=== PATIENT | female | born 1945 | race Caucasian/White ===

== ENCOUNTER → 2017-02-26 | Outpatient (CLI) | payer MEDICARE, MEDICAID ==
--- NOTE | 2017-02-26 16:13 | WOMENS IMAGING REPORT ---
EXAM DESCRIPTION: BILAT SCREENING MAMMO W/CAD COMPLETED DATE/TIME: 02/26/2017 8:56 am REASON FOR STUDY: SCREENING MAMMO Z12.31 ENCNTR SCREEN MAMMOGRAM FOR MALIGNANT NEOPLASM OF SATYA COMPARISON: No previous available. No previous mammograms here since 2006 TECHNIQUE: Standard craniocaudal and mediolateral oblique views of each breast recorded using Bioptigena l acquisition. LIMITATIONS: None. FINDINGS: RIGHT BREAST MASSES: No suspicious masses. CALCIFICATIONS: No new or suspicious calcifications. ARCHITECTURAL DISTORTION: None. DEVELOPING DENSITY: None. ASYMMETRY: None noted. OTHER: No other significant findings. LEFT BREAST MASSES: Nodule versus superimposed shadows 12 o'clock position left breast 5 cm from the nipple. Thi s requires further evaluation with cone compression in the CC and MLO orientations, left breast tomos ynthesis in the CC and 90 mediolateral orientations, and left breast ultrasound. CALCIFICATIONS: No new or suspicious calcifications. ARCHITECTURAL DISTORTION: None. DEVELOPING DENSITY: None. ASYMMETRY: None noted. OTHER: No other significant findings. Read with the assistance of CAD. .[facility] - R2 Cenova Version 1.3 .[facility] Imaging - R2 Cenova Version 1.3 .[facility] Imaging - R2 Cenova Version 2.4 .[facility] [place] R2 Cenova Version 2.4 .[facility] - R2 Warning Analyst Version 9.2 IMPRESSION: No mammographic evidence for malignancy right breast. Nodules versus superimposed shadows left breast 12 o'clock position for which additional cone shelly salo images, tomosynthesis, and breast ultrasound recommended BREAST DENSITY: b. There are scattered areas of fibroglandular density. BIRAD: 0 Incomplete: Needs Additional Imaging Evaluation and/or prior Mammograms for Comparison. RECOMMENDATION: RECOMMENDED FOLLOW-UP: Additional left breast diagnostic mammograms/tomosynthesis an d ultrasound The patient will be contacted for additional imaging. COMMENT: The patient has been notified of the results by letter per SA requirements. Additional no tification policies are in place for contacting patient with suspicious or incomplete findings. Quality ID #[id number]: The [employer] recommends an annual screening mammogram for women aged 40 years or over. This facility utilizes a reminder system to ensure that all patients receive reminder letters, and/or direct phone calls for appointments. This includes reminders for routine scr eening mammograms, diagnostic mammograms, or other Breast Imaging Interventions when appropriate. Th is patient will be placed in the appropriate reminder system. The [employer] (ACR) has developed recommendations for screening MRI of the breast s in certain patient populations, to be used in conjunction with mammography. Breast MRI surveillanc e may be appropriate for women with more than 20% lifetime risk of developing breast cancer as deter mined by genetic testing, significant family history of the disease, or history of mantle radiation f or Hodgkins Disease. ACR Practice Guidelines 2008. TECHNICAL DOCUMENTATION: FINDING NUMBER: (1) ASSESSMENT: (1) JOB ID: [id number] [employer]- All Rights Reserved
== END ==
LOC: WI 08:34
PROVIDERS: ATTEND Family Medicine
DX: Z12.31 Encounter for screening mammogram for malignant neoplasm of breast (principal)
CPT/HCPCS: 77067; G0202

== ENCOUNTER → 2017-03-18 | Outpatient (CLI) | payer MEDICARE, MEDICAID ==
--- NOTE | 2017-03-18 18:01 | WOMENS IMAGING REPORT ---
EXAM DESCRIPTION: LEFT DIAGNOSTIC MAMMO W/CAD; U/S BREAST UNILAT LIMITED COMPLETED DATE/TIME: 03/18/2017 9:38 am; 03/18/2017 10:49 am REASON FOR STUDY: LUMP N63; LEFT BREAST MASS; N63 N63 UNSPECIFIED LUMP IN BREAST; N63 UNSPECIFIED LUMP IN BREAST * DO NOT USE * COMPARISON: Mammograms 02/26/2017 TECHNIQUE: Spot compression craniocaudal and mediolateral oblique images of the breast recorded with digital acquisition. Left breast 90 mediolateral view. Left breast ultrasound also performed. LIMITATIONS: None. FINDINGS: BREAST: Left MASSES: Low-density mammographic nodule, 8 x 3 mm in size at the 12 o'clock position CALCIFICATIONS: No new or suspicious calcifications. ARCHITECTURAL DISTORTION: None. DEVELOPING DENSITY: None. ASYMMETRY: None noted. OTHER: No other significant findings. Read with the assistance of CAD. .[facility] - R2 Cenova Version 1.3 .[facility] Imaging - R2 Cenova Version 1.3 .[facility] Imaging - R2 Cenova Version 2.4 .[facility] [place] - R2 Cenova Version 2.4 .[facility] - R2 Trouble Shooter Version 9.2 Left Breast ultrasound: Ultrasound of the left breast was performed at the 12 o'clock position by both myself as well as the technologist. At the 12 o'clock position left breast, an 8 by 3 mm nodule is present, hypoechoic and well-circumscribed. No internal color flow. This finding was discussed with the patient. She prefe rs six-month follow-up to any kind of breast intervention/biopsy. Because this may represent a small fibroadenoma, and mammograms prior to February of this year have been destroyed, we will perform si x-month follow-up left breast mammograms and ultrasound in September 2017 IMPRESSION: Probably benign mammographic and sonographic nodule left breast 12 o'clock position BREAST DENSITY: b. There are scattered areas of fibroglandular density. BIRAD: 3 Probably benign finding. Initial short-interval follow-up suggested. RECOMMENDATION: RECOMMENDED FOLLOW UP: Six-month follow up left breast diagnostic mammograms and ult rasound SPECIFIC INTERVENTION/IMAGING/CONSULTATION RECOMMENDED:No additional intervention/ imaging/consultati on needed at this time. COMMUNICATION:Results were discussed with the patient COMMENT: The patient has been notified of the results by letter per SA requirements. Additional no tification policies are in place for contacting patient with suspicious or incomplete findings. Quality ID #[id number]: The [employer] recommends an annual screening mammogram for women aged 40 years or over. This facility utilizes a reminder system to ensure that all patients receive reminder letters, and/or direct phone calls for appointments. This includes reminders for routine scr eening mammograms, diagnostic mammograms, or other Breast Imaging Interventions when appropriate. Th is patient will be placed in the appropriate reminder system. The [employer] (ACR) has developed recommendations for screening MRI of the breast s in certain patient populations, to be used in conjunction with mammography. Breast MRI surveillanc e may be appropriate for women with more than 20% lifetime risk of developing breast cancer as deter mined by genetic testing, significant family history of the disease, or history of mantle radiation f or Hodgkins Disease. ACR Practice Guidelines 2008. TECHNICAL DOCUMENTATION: FINDING NUMBER: (1) ASSESSMENT: (1) JOB ID: [id number] [employer]- All Rights Reserved
--- NOTE | 2017-03-19 10:26 | WOMENS IMAGING REPORT ---
EXAM DESCRIPTION: LEFT DIAGNOSTIC MAMMO W/CAD; U/S BREAST UNILAT LIMITED COMPLETED DATE/TIME: 03/18/2017 9:38 am; 03/18/2017 10:49 am REASON FOR STUDY: LUMP N63; LEFT BREAST MASS; N63 N63 UNSPECIFIED LUMP IN BREAST; N63 UNSPECIFIED LUMP IN BREAST * DO NOT USE * COMPARISON: Mammograms 02/26/2017 TECHNIQUE: Spot compression craniocaudal and mediolateral oblique images of the breast recorded with digital acquisition. Left breast 90 mediolateral view. Left breast ultrasound also performed. LIMITATIONS: None. FINDINGS: BREAST: Left MASSES: Low-density mammographic nodule, 8 x 3 mm in size at the 12 o'clock position CALCIFICATIONS: No new or suspicious calcifications. ARCHITECTURAL DISTORTION: None. DEVELOPING DENSITY: None. ASYMMETRY: None noted. OTHER: No other significant findings. Read with the assistance of CAD. .[facility] - R2 Cenova Version 1.3 .[facility] Imaging - R2 Cenova Version 1.3 .[facility] Imaging - R2 Cenova Version 2.4 .[facility] [place] R2 Cenova Version 2.4 .[facility] - R2 Computer System Technician Version 9.2 Left Breast ultrasound: Ultrasound of the left breast was performed at the 12 o'clock position by both myself as well as the technologist. At the 12 o'clock position left breast, an 8 by 3 mm nodule is present, hypoechoic and well-circumscribed. No internal color flow. This finding was discussed with the patient. She prefe rs six-month follow-up to any kind of breast intervention/biopsy. Because this may represent a small fibroadenoma, and mammograms prior to February of this year have been destroyed, we will perform si x-month follow-up left breast mammograms and ultrasound in September 2017 IMPRESSION: Probably benign mammographic and sonographic nodule left breast 12 o'clock position BREAST DENSITY: b. There are scattered areas of fibroglandular density. BIRAD: 3 Probably benign finding. Initial short-interval follow-up suggested. RECOMMENDATION: RECOMMENDED FOLLOW UP: Six-month follow up left breast diagnostic mammograms and ult rasound SPECIFIC INTERVENTION/IMAGING/CONSULTATION RECOMMENDED:No additional intervention/ imaging/consultati on needed at this time. COMMUNICATION:Results were discussed with the patient COMMENT: The patient has been notified of the results by letter per SA requirements. Additional no tification policies are in place for contacting patient with suspicious or incomplete findings. Quality ID #[id number]: The [employer] recommends an annual screening mammogram for women aged 40 years or over. This facility utilizes a reminder system to ensure that all patients receive reminder letters, and/or direct phone calls for appointments. This includes reminders for routine scr eening mammograms, diagnostic mammograms, or other Breast Imaging Interventions when appropriate. Th is patient will be placed in the appropriate reminder system. The [employer] (ACR) has developed recommendations for screening MRI of the breast s in certain patient populations, to be used in conjunction with mammography. Breast MRI surveillanc e may be appropriate for women with more than 20% lifetime risk of developing breast cancer as deter mined by genetic testing, significant family history of the disease, or history of mantle radiation f or Hodgkins Disease. ACR Practice Guidelines 2008. TECHNICAL DOCUMENTATION: FINDING NUMBER: (1) ASSESSMENT: (1) JOB ID: [id number] [employer]- All Rights Reserved
== END ==
LOC: WI 09:44
PROVIDERS: ATTEND Family Medicine
DX: N63.20 Unspecified lump in the left breast, unspecified quadrant (principal)
CPT/HCPCS: 76642; G0206

== ENCOUNTER → 2017-04-23 | Outpatient (CLI) | payer MEDICARE, MEDICAID ==
--- NOTE | 2017-04-23 12:42 | RADIOLOGY REPORT (SQ) ---
EXAM DESCRIPTION: PELVIS AP COMPLETED DATE/TIME: 04/23/2017 12:14 pm REASON FOR STUDY: PAIN IN LEFT HIP M25.552 PAIN IN LEFT HIP COMPARISON: None. NUMBER OF VIEWS: One view TECHNIQUE: AP Pelvis LIMITATIONS: None. FINDINGS: MINERALIZATION: Normal. HIPS: No acute fracture or dislocation. No worrisome bone lesions. PELVIS AND SACRUM: There is a defect in the right ilium, suggesting donor site for bone graft. PUBIS AND ISCHIUM: No acute fracture. LOWER LUMBAR SPINE: No significant findings as visualized. SOFT TISSUES: No findings. OTHER: No other significant finding. IMPRESSION: NEGATIVE STUDY OF THE PELVIS. TECHNICAL DOCUMENTATION: JOB ID: [id number] [employer]- All Rights Reserved
== END ==
LOC: OD 11:58
PROVIDERS: ATTEND Family Medicine
DX: M25.552 Pain in left hip (principal)
CPT/HCPCS: 72170

== ENCOUNTER 2017-05-30 22:16 | Observation (INO) | payer MEDICARE, MEDICAID ==
[2017-05-30] MEDS ORDERED: LABETALOL HCL INJ 20 MG/4 ML DISP.SYRIN IV ONE ×2 (22:40→22:41)
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
[2017-05-30 23:24] LABS: APPEARANCE,URINE CLEAR; BILIRUBIN,URINE NEGATIVE (NEGATIVE); COLOR,URINE STRAW; GLUCOSE, URINE NEGATIVE (NEGATIVE); KETONES,URINE NEGATIVE (NEGATIVE); LEUKOCYTE ESTERASE,URINE SMALL (NEGATIVE); NITRITE,URINE NEGATIVE (NEGATIVE); PROTEIN,URINE NEGATIVE (NEGATIVE); URINE SPECIFIC GRAVITY 1.002; UROBILINOGEN,URINE NEGATIVE mg/dL (<2.0)
[2017-05-30 23:25] LABS: ABSOLUTE EOSINOPHILS # (AUTO) 0.1 10^3/uL (0.0-0.6); ABSOLUTE MONOCYTES (AUTO) 0.6 10^3/uL (0.1-1.4); ABSOLUTE NEUT (AUTO) 3.5 10^3/uL (1.7-8.2); BASOPHILS % (AUTO) 0.5 % (0-2); EOSINOPHILS % (AUTO) 1.5 % (0-6); HEMATOCRIT 46.8 % (36.0-47.0); HEMOGLOBIN 16.1 g/dL (12.0-15.5); LYMPHOCYTES % (AUTO) 41.4 % (13-45); MEAN CORPUSCULAR HEMOGLOBIN 32.8 pg (27.0-33.4); MEAN CORPUSCULAR HGB CONC 34.5 g/dL (32.0-36.0); MEAN CORPUSCULAR VOLUME 95 fl (80-97); MONOCYTES % (AUTO) 7.7 % (3-13); PLATELET COUNT 158 10^3/uL (150-450); RED BLOOD COUNT 4.93 10^6/uL (3.72-5.28); RED CELL DISTRIBUTION WIDTH 13.6 % (11.5-14.0); SEGMENTED NEUTROPHILS % (AUTO) 48.9 % (42-78); TOTAL CELLS COUNTED % (AUTO) 100 %; WHITE BLOOD COUNT 7.2 10^3/uL (4.0-10.5)
[2017-05-30 23:32] LABS: ALANINE AMINOTRANSFERASE 18 U/L (9-52); ALBUMIN 4.1 g/dL (3.5-5.0); ALKALINE PHOSPHATASE 57 U/L (38-126); ANION GAP 10 (5-19); ASPARTATE AMINO TRANSFERASE 25 U/L (14-36); BILIRUBIN,DIRECT 0.3 mg/dL (0.0-0.4); BILIRUBIN,TOTAL 0.7 mg/dL (0.2-1.3); BLOOD UREA NITROGEN 12 mg/dL (7-20); CALCIUM 9.4 mg/dL (8.4-10.2); CARBON DIOXIDE 30 mmol/L (22-30); CHLORIDE 100 mmol/L (98-107); CREATINE KINASE 31 U/L (30-135); GLUCOSE 97 mg/dL (75-110); MAGNESIUM 2.2 mg/dL (1.6-2.3); POTASSIUM 3.4 mmol/L (3.6-5.0); SODIUM 139.5 mmol/L (137-145); TOTAL PROTEIN 7.1 g/dL (6.3-8.2)
[2017-05-30 23:44] LABS: CREATINE KINASE MB 0.53 ng/mL (<4.55); TROPONIN I 0.017 ng/mL
[2017-05-31 00:01] LABS: URINE AMPHETAMINES SCREEN NEGATIVE; URINE BARBITURATES SCREEN NEGATIVE; URINE BENZODIAZEPINES SCREEN NEGATIVE; URINE COCAINE SCREEN NEGATIVE; URINE MARIJUANA (THC) SCREEN NEGATIVE; URINE METHADONE SCREEN NEGATIVE; URINE PHENCYCLIDINE SCREEN NEGATIVE
--- NOTE | 2017-05-31 00:07 | RADIOLOGY REPORT (SQ) ---
EXAM DESCRIPTION: CT HEAD WITHOUT CLINICAL HISTORY: 71 years Female, BP> 260syst, acutely confused COMPARISON: None. TECHNIQUE: No contrast. This exam was performed according to our departmental dose-optimization program, which includes automated exposure control, adjustment of the mA and/or kV according to patient size and/or use of iterative reconstruction technique. Limitation: Mild motion artifact. FINDINGS: Mild white matter microangiopathy. Atherosclerosis. No hemorrhage or infarct. No mass, mass effect, or midline shift. Bone demineralization. Extra-axial structures appear otherwise grossly intact. IMPRESSION: No acute findings.
--- NOTE | 2017-05-31 00:13 | RADIOLOGY REPORT (SQ) ---
EXAM DESCRIPTION: CHEST SINGLE VIEW CLINICAL HISTORY: 71 years, Female, confused hypertency emergency COMPARISON: None. LIMITATIONS: None. FINDINGS: Moderate lung volume, clear parenchyma, normal cardiac silhouette, atherosclerosis, mild osteoarthritis. IMPRESSION: Normal chest radiograph. 2011 [employer]- All Rights Reserved
[2017-05-31] MEDS ORDERED: MAG HYDROX/AL HYDROX/SIMETH SUSP 30 ML UDCUP PO PRN (00:46)
[2017-05-31] MEDS ORDERED: IPRATROPIUM/ALBUTEROL 0.5-2.5 MG/3 ML AMPUL NEB PRN (00:46)
[2017-05-31] MEDS ORDERED: ACETAMINOPHEN 325 MG TABLET PO PRN (00:46)
[2017-05-31] MEDS ORDERED: ENALAPRILAT DIHYDRATE INJ/PF 1.25 MG/1 ML SDV IV ONE (00:46)
[2017-05-31] MEDS ORDERED: POTASSIUM CHLORIDE 20 MEQ/15 ML UDCUP PO ONE ×2 (04:42→18:00)
[2017-05-31 04:47] LABS: ABSOLUTE EOSINOPHILS # (AUTO) 0.1 10^3/uL (0.0-0.6); ABSOLUTE LYMPHOCYTES (AUTO) 2.6 10^3/uL (0.5-4.7); ABSOLUTE MONOCYTES (AUTO) 0.5 10^3/uL (0.1-1.4); ABSOLUTE NEUT (AUTO) 3.3 10^3/uL (1.7-8.2); BASOPHILS % (AUTO) 0.7 % (0-2); EOSINOPHILS % (AUTO) 1.6 % (0-6); HEMATOCRIT 44.7 % (36.0-47.0); HEMOGLOBIN 15.3 g/dL (12.0-15.5); LYMPHOCYTES % (AUTO) 39.9 % (13-45); MEAN CORPUSCULAR HEMOGLOBIN 32.6 pg (27.0-33.4); MEAN CORPUSCULAR HGB CONC 34.2 g/dL (32.0-36.0); MEAN CORPUSCULAR VOLUME 95 fl (80-97); MONOCYTES % (AUTO) 7.6 % (3-13); PLATELET COUNT 151 10^3/uL (150-450); RED BLOOD COUNT 4.69 10^6/uL (3.72-5.28); RED CELL DISTRIBUTION WIDTH 13.5 % (11.5-14.0); SEGMENTED NEUTROPHILS % (AUTO) 50.2 % (42-78); TOTAL CELLS COUNTED % (AUTO) 100 %; WHITE BLOOD COUNT 6.5 10^3/uL (4.0-10.5)
[2017-05-31 05:00] LABS: ANION GAP 12 (5-19); BLOOD UREA NITROGEN 12 mg/dL (7-20); CALCIUM 9.2 mg/dL (8.4-10.2); CARBON DIOXIDE 25 mmol/L (22-30); CHLORIDE 104 mmol/L (98-107); GLUCOSE 95 mg/dL (75-110); POTASSIUM 3.4 mmol/L (3.6-5.0)
[2017-05-31] MEDS: HEPARIN SOD (PORCINE) 5,000 UNIT/ML 1 ML SYRINGE SUBCUT SCH ×3 (05:53→22:11)
[2017-05-31] MEDS ORDERED: KETOROLAC TROMETHAMINE INJ/PF 30 MG/1 ML SDV IV PRN (05:55)
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
[2017-05-31] MEDS: OXYCODONE-ACETAMINOPHEN 5-325 MG TABLET PO PRN ×2 (07:01→22:18)
--- NOTE | 2017-05-31 07:56 | EKG REPORT ---
SEVERITY:- OTHERWISE NORMAL ECG - SINUS RHYTHM LEFT AXIS DEVIATION : Confirmed by: Delbert Machado MD 31-May-2017 07:55:47
[2017-05-31] MEDS ORDERED: (PENDING PHARMACY ID) (Valsartan/Hydrochlorothiazide [Valsartan-Hctz 320-12.5 Mg Tab] 1 EA PO SCH (10:00)
[2017-05-31] MEDS: METOPROLOL TARTRATE 25 MG TABLET PO SCH ×2 (11:12→17:46)
[2017-05-31] MEDS: HYDROCHLOROTHIAZIDE 12.5 MG CAPSULE PO SCH (11:12)
[2017-05-31] MEDS: VALSARTAN 160 MG TABLET PO SCH (11:12)
[2017-05-31] MEDS ORDERED: NORMAL SALINE 500 ML IV PRN (11:47)
[2017-05-31] MEDS: DOCUSATE SODIUM 100 MG CAPSULE PO SCH ×2 (12:04→18:28)
--- NOTE | 2017-05-31 17:10 | PDOC PROGRESS REPORT ---
Subjective Progress Note for:: 05/31/17 Subjective:: Pt is seen on morning rounds for follow up of hypertensive urgency. She is found resting in bed comfortably on room air. She wakes to verbal and briefly answers questions, but quickly falls back to sleep. The patient's adult daughter is present. Reports that her mother has dementia and that she has noted her becoming progressively more confused over the last several months; often times the mother does not remember speaking to her earlier in the day. She is concerned that the patient may be forgetting her medications and accidentally taking more pain medications and is recommended. She states that her and her older brother have been attempting to get the patient to move into a assisted facility for a few years now, however, she currently is living with the youngest son and so has remained resistant to moving out of her home. The daughter does request social work therapist to assist with identifying needs and services. She has no other questions or concerns today. Reason For Visit: HTN URGENCY,ENCEPHALOPATHY,DELERIUM,CHRONIC PAIN Physical Exam Vital Signs: Temp Pulse Resp BP Pulse Ox 97.9 F 56 L 17 127/59 H 97 05/31/17 16:00 05/31/17 16:00 05/31/17 16:00 05/31/17 16:00 05/31/17 16:00 Intake & Output 05/30/17 05/31/17 06/01/17 06:59 06:59 06:59 Weight 58.5 kg General appearance: PRESENT: no acute distress, well-developed, well-nourished Head exam: PRESENT: atraumatic, normocephalic Eye exam: PRESENT: conjunctiva pink, EOMI, PERRLA. ABSENT: scleral icterus Ear exam: PRESENT: normal external ear exam Mouth exam: PRESENT: moist, tongue midline Neck exam: ABSENT: carotid bruit, JVD, lymphadenopathy, thyromegaly Respiratory exam: PRESENT: clear to auscultation damon. ABSENT: rales, rhonchi, wheezes Cardiovascular exam: PRESENT: RRR. ABSENT: diastolic murmur, rubs, systolic murmur Pulses: PRESENT: normal dorsalis pedis pul Vascular exam: PRESENT: normal capillary refill GI/Abdominal exam: PRESENT: normal bowel sounds, soft. ABSENT: distended, guarding, mass, organolmegaly, rebound, tenderness Rectal exam: PRESENT: deferred Extremities exam: PRESENT: full ROM. ABSENT: calf tenderness, clubbing, pedal edema Neurological exam: PRESENT: oriented to person, oriented to place, CN II-XII grossly intact, other - Pleasantly confused.. ABSENT: oriented to time, oriented to situation, motor sensory deficit Psychiatric exam: PRESENT: appropriate affect, normal mood. ABSENT: homicidal ideation, suicidal ideation Skin exam: PRESENT: dry, intact, warm. ABSENT: cyanosis, rash Results Laboratory Results: 05/31/17 04:27 05/31/17 04:27 05/31/17 05/31/17 04:27 04:27 WBC 6.5 RBC 4.69 Hgb 15.3 Hct 44.7 MCV 95 MCH 32.6 MCHC 34.2 RDW 13.5 Plt Count 151 Seg Neutrophils % 50.2 Lymphocytes % 39.9 Monocytes % 7.6 Eosinophils % 1.6 Basophils % 0.7 Absolute Neutrophils 3.3 Absolute Lymphocytes 2.6 Absolute Monocytes 0.5 Absolute Eosinophils 0.1 Absolute Basophils 0.0 Sodium 141.0 Potassium 3.4 L Chloride 104 Carbon Dioxide 25 Anion Gap 12 BUN 12 Creatinine 1.15 Est GFR ( Amer) 56 L Est GFR (Non-Af Amer) 46 L Glucose 95 Calcium 9.2 Impressions: Head CT 05/30/17 22:41 IMPRESSION: No acute findings. Chest X-Ray 05/30/17 22:42 IMPRESSION: Normal chest radiograph. 2010 [employer]- All Rights Reserved Assessment & Plan - Diagnosis (1) Hypertensive urgency Is this a current diagnosis for this admission?: Yes Plan: Likely multifactorial secondary to noncompliance with medication and severe delirium with hallucinations. She was provided IV Vasotec initially and had reintroduction of her home medication regiment. The pt did become mildly hypotensive today and was provided a 500 mL of normal saline bolus with appropriate recovery of blood pressure. Will continue to monitor closely. (2) Dementia Qualifiers: Dementia type: unspecified type Is this a current diagnosis for this admission?: Yes Plan: Patient with progressively worsening dementia per family who presents with acute worsening; the patient is oriented to [place], Steve Novoa, and is expressing visual hallucinations (believes there is a broken vase in the room). Likely worsened by hypertensive urgency. Will manage blood pressure as above. Will ask discharge planning to meet with the patient and family to evaluate for safe discharge plan. (3) Chronic pain Qualifiers: Chronic pain type: other chronic pain Qualified Code(s): G89.29 - Other chronic pain Is this a current diagnosis for this admission?: Yes Plan: Complicated by opiate dependence. Her Percocet bottles show a large deficit; however the patient's UDS is negative. Some concern w/ regard to drug diversion by family member that lives in the home. Will ask discharge planning to evaluate the patient's current living situation. May need to consider a DSS referral. (4) Delirium Is this a current diagnosis for this admission?: Yes Plan: Likely multifactorial encephalopathy secondary to hypertensive urgency and dementia. Will provide for safety and continue to monitor. (5) Hypokalemia Is this a current diagnosis for this admission?: Yes Plan: Replete. Will continue to monitor and replace as necessary. (6) Left ankle sprain Is this a current diagnosis for this admission?: Yes Plan: Remote; ankle sprain from approximately 1 month ago with continued pain. No deformities noted on exam. Will ask PT/OT to evaluate the patient. - Time Time Spent with patient: 15-24 minutes Medications reviewed and adjusted accordingly: Yes
[2017-05-31] MEDS ORDERED: VALSARTAN 160 MG TABLET PO ONE (22:45)
[2017-06-01 05:01] LABS: ABSOLUTE EOSINOPHILS # (AUTO) 0.1 10^3/uL (0.0-0.6); ABSOLUTE LYMPHOCYTES (AUTO) 3.3 10^3/uL (0.5-4.7); ABSOLUTE MONOCYTES (AUTO) 0.5 10^3/uL (0.1-1.4); ABSOLUTE NEUT (AUTO) 2.5 10^3/uL (1.7-8.2); BASOPHILS % (AUTO) 0.4 % (0-2); EOSINOPHILS % (AUTO) 2.2 % (0-6); HEMATOCRIT 42.8 % (36.0-47.0); HEMOGLOBIN 14.5 g/dL (12.0-15.5); LYMPHOCYTES % (AUTO) 51.1 % (13-45); MEAN CORPUSCULAR HEMOGLOBIN 32.5 pg (27.0-33.4); MEAN CORPUSCULAR HGB CONC 33.8 g/dL (32.0-36.0); MEAN CORPUSCULAR VOLUME 96 fl (80-97); MONOCYTES % (AUTO) 7.1 % (3-13); PLATELET COUNT 143 10^3/uL (150-450); RED BLOOD COUNT 4.45 10^6/uL (3.72-5.28); RED CELL DISTRIBUTION WIDTH 13.8 % (11.5-14.0); SEGMENTED NEUTROPHILS % (AUTO) 39.2 % (42-78); TOTAL CELLS COUNTED % (AUTO) 100 %; WHITE BLOOD COUNT 6.5 10^3/uL (4.0-10.5)
[2017-06-01 05:35] LABS: ANION GAP 9 (5-19); BLOOD UREA NITROGEN 23 mg/dL (7-20); CALCIUM 9.1 mg/dL (8.4-10.2); CARBON DIOXIDE 24 mmol/L (22-30); CHLORIDE 106 mmol/L (98-107); GLUCOSE 77 mg/dL (75-110); SODIUM 138.7 mmol/L (137-145)
[2017-06-01 05:48] LABS: POTASSIUM 4.7 mmol/L (3.6-5.0)
[2017-06-01] MEDS: HEPARIN SOD (PORCINE) 5,000 UNIT/ML 1 ML SYRINGE SUBCUT SCH ×2 (06:56→14:29)
[2017-06-01] MEDS: METOPROLOL TARTRATE 25 MG TABLET PO SCH (10:05)
[2017-06-01] MEDS: DOCUSATE SODIUM 100 MG CAPSULE PO SCH (10:08)
[2017-06-01] MEDS: HYDROCHLOROTHIAZIDE 12.5 MG CAPSULE PO SCH (10:08)
[2017-06-01] MEDS: VALSARTAN 160 MG TABLET PO SCH (10:08)
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
[2017-06-01 16:16] VITALS: BP 114/54
[2017-06-01] MEDS ORDERED: METOPROLOL TARTRATE 25 MG TABLET PO SCH (22:00)
== END 2017-06-01 16:42 | disposition home or self-care (01) ==
LOC: ER 22:16 → EH 05-31 01:45 → 5 05-31 03:23
PROVIDERS: ADMIT Internal Medicine; ATTEND Internal Medicine
DX: I16.0 Hypertensive urgency (principal); R41.0 Disorientation, unspecified; F03.90 Unspecified dementia, unspecified severity, without behavioral disturbance, psychotic disturbance, mood disturbance, and anxiety; G89.29 Other chronic pain; E87.6 Hypokalemia; S93.402A Sprain of unspecified ligament of left ankle, initial encounter; X58.XXXA Exposure to other specified factors, initial encounter; Z91.14 Patient's other noncompliance with medication regimen; F11.20 Opioid dependence, uncomplicated; F17.200 Nicotine dependence, unspecified, uncomplicated; Z98.890 Other specified postprocedural states; Z90.49 Acquired absence of other specified parts of digestive tract
CPT/HCPCS: 93005; 99291; 96374; 36415 ×3; 82553; 82550; 83735; 84443; 85025 ×3; 80048 ×2; 80053; 81001; 84484; 80307; 71010; 70450; 93010; 97163; G0378 ×3; J1644 ×2; A9270 ×7; J3490 ×2; J7040; G8978; G8979

== ENCOUNTER → 2019-02-01 | Outpatient (CLI) | payer MEDICARE, MEDICAID ==
--- NOTE | 2019-02-01 17:59 | RADIOLOGY REPORT (SQ) ---
EXAM DESCRIPTION: PELVIS AP COMPLETED DATE/TIME: 02/01/2019 5:32 pm REASON FOR STUDY: FEMALE PELVIC PAIN;ACUTE LOW BACK PAIN WITHOUT SCIATICA;ACUTE NECK AND THOR COMPARISON: None. NUMBER OF VIEWS: One view TECHNIQUE: AP Pelvis LIMITATIONS: None. FINDINGS: MINERALIZATION: Normal. HIPS: No acute fracture or dislocation. No worrisome bone lesions. PELVIS AND SACRUM: Donor site in the right ilium. No acute findings. PUBIS AND ISCHIUM: No acute fracture. LOWER LUMBAR SPINE: No significant findings as visualized. SOFT TISSUES: No findings. OTHER: No other significant finding. IMPRESSION: NEGATIVE STUDY OF THE PELVIS. COMMENT: Pelvic fractures are often occult on plain radiographs. If strong clinical suspicion for f racture, recommend CT or MR. TECHNICAL DOCUMENTATION: JOB ID: [id number]- All Rights Reserved Reading location - IP/workstation name: [email or web address]
--- NOTE | 2019-02-01 18:01 | RADIOLOGY REPORT (SQ) ---
EXAM DESCRIPTION: T SPINE AP/LAT COMPLETED DATE/TIME: 02/01/2019 5:32 pm REASON FOR STUDY: FEMALE PELVIC PAIN;ACUTE LOW BACK PAIN WITHOUT SCIATICA;ACUTE NECK AND THOR COMPARISON: None. NUMBER OF VIEWS: Two views. TECHNIQUE: AP and lateral radiographic images acquired of the thoracic spine. LIMITATIONS: None. FINDINGS: MINERALIZATION: Normal. ALIGNMENT: Normal. No scoliosis. VERTEBRAE: No fracture or bone lesion. Maintained height, normal segmentation. DISCS: No significant loss of height or significant narrowing. No large osteophytes. HARDWARE: None in the spine. MEDIASTINUM AND SOFT TISSUES: Normal heart size and aortic contour. No soft tissue abnormality. VISUALIZED LUNG ADAIR: Clear. OTHER: No other significant finding. IMPRESSION: NO SIGNIFICANT RADIOGRAPHIC FINDING IN THE THORACIC SPINE. TECHNICAL DOCUMENTATION: JOB ID: [id number] [employer]- All Rights Reserved Reading location - IP/workstation name: [email or web address]
--- NOTE | 2019-02-01 18:01 | RADIOLOGY REPORT (SQ) ---
EXAM DESCRIPTION: LUMBAR SPINE COMPLETE COMPLETED DATE/TIME: 02/01/2019 5:32 pm REASON FOR STUDY: FEMALE PELVIC PAIN;ACUTE LOW BACK PAIN WITHOUT SCIATICA;ACUTE NECK AND THOR COMPARISON: None. NUMBER OF VIEWS: Five views including obliques. TECHNIQUE: AP, lateral, oblique, and sacral radiographic images acquired of the lumbar spine. LIMITATIONS: None. FINDINGS: MINERALIZATION: Normal. SEGMENTATION: Normal. No transitional anatomy. ALIGNMENT: Normal. VERTEBRAE: Maintained height. No fracture or worrisome bone lesion. DISCS: Disc spaces are narrowed most prominently at L1-2 with marginal osteophytes. There is mild di sc narrowing throughout the lumbar spine with small marginal osteophytes. POSTERIOR ELEMENTS: Hypertrophic facet changes from L4-S1. HARDWARE: None in the spine. PARASPINAL SOFT TISSUES: Normal. PELVIS: Intact as visualized. No fractures or worrisome bone lesions. SI joints intact. OTHER: No other significant finding. IMPRESSION: Degenerative disc disease, spondylosis, and facet arthropathy. TECHNICAL DOCUMENTATION: JOB ID: [id number] [employer]- All Rights Reserved Reading location - IP/workstation name: [email or web address]
--- NOTE | 2019-02-01 18:03 | RADIOLOGY REPORT (SQ) ---
EXAM DESCRIPTION: C SP 4 OR 5 VIEWS COMPLETED DATE/TIME: 02/01/2019 5:32 pm REASON FOR STUDY: FEMALE PELVIC PAIN;ACUTE LOW BACK PAIN WITHOUT SCIATICA;ACUTE NECK AND THOR COMPARISON: None. NUMBER OF VIEWS: Five views. TECHNIQUE: AP, lateral, obliques and odontoid radiographic images acquired of the cervical spine. LIMITATIONS: None. FINDINGS: MINERALIZATION: Normal. ALIGNMENT: Anatomic. VERTEBRAE: There appears to be fusion of the vertebral bodies from C5-C7. DISCS: Disc narrowing at C4-5 with marginal osteophytes. FORAMINA: No osteophytes or foraminal narrowing. LATERAL AND POSTERIOR ELEMENTS: Facets, lateral masses and spinous processes without significant find ings. HARDWARE: None in the spine. SOFT TISSUES: No masses or calcifications. Lung apices clear. OTHER: No other significant finding. IMPRESSION: Fusion of C5, C6, and C7. Degenerative disc disease. Spondylosis. TECHNICAL DOCUMENTATION: JOB ID: [id number] [employer]- All Rights Reserved Reading location - IP/workstation name: [email or web address]
== END ==
LOC: OD 16:02
PROVIDERS: ATTEND Family Medicine
DX: M54.5 Low back pain (principal); R10.2 Pelvic and perineal pain; M54.2 Cervicalgia; M54.6 Pain in thoracic spine
CPT/HCPCS: 72050; 72070; 72110; 72170

== ENCOUNTER → 2019-02-16 | Outpatient (CLI) | payer MEDICARE, MEDICAID ==
--- NOTE | 2019-02-16 14:18 | WOMENS IMAGING REPORT ---
EXAM DESCRIPTION: BONE DENSITY HIP/SPINE COMPLETED DATE/TIME: 02/16/2019 2:08 pm REASON FOR STUDY: M81.0 AGE-RELATED OSTEOPOROSIS WITHOUT CURRENT PATHOLOGICAL FRACTURE Z12.31 ENCNT R SCREEN MAMMOGRAM FOR MALIGNANT NEOPLASM OF SATYA M81.0 AGE-RELATED OSTEOPOROSIS W/O CURRENT PATHOLOG ICAL FRAC COMPARISON: None. TECHNIQUE: Dual-Energy X-ray Absorptiometry (DEXA) of the AP Spine and Hip. LIMITATIONS: None. FINDINGS: LUMBAR SPINE: The bone mineral density (BMD) measured from L1-L4 in the AP projection correlates with a T-score of 2.9, which is normal as defined by the World Health Organization. HIP: The bone mineral density (BMD) measured in the left hip correlates with a T-score of -0.8, which is n ormal as defined by the World Health Organization. IMPRESSION: 1. LUMBAR SPINE: NORMAL. 2. HIP: NORMAL. COMMENT: The World Health Organization defines low BMD as follows: T-score: Normal: Greater than -1.0 Osteopenia: Between -1.0 and -2.5 Osteoporosis: Less than -2.5 without fractures Established osteoporosis: Less than -2.5 with fractures In general, you may wish to consider: Diagnosis Treatment Follow-up DEXA Normal BMD Prevention 2-3 years Osteopenia Prevention/Therapy 1-2 years Osteoporosis Therapy Yearly TECHNICAL DOCUMENTATION: JOB ID: [id number] [employer]- All Rights Reserved Reading location - IP/workstation name: [email or web address]
--- NOTE | 2019-02-17 09:03 | WOMENS IMAGING REPORT ---
EXAM DESCRIPTION: BILAT SCREENING MAMMO W/CAD COMPLETED DATE/TIME: 02/16/2019 2:08 pm REASON FOR STUDY: Z12.31 ENCOUNTER FOR SCREENING MAMMOGRAM FOR MALIGNANT NEOPLASM OF BREAST Z12.31 ENCNTR SCREEN MAMMOGRAM FOR MALIGNANT NEOPLASM OF SATYA M81.0 AGE-RELATED OSTEOPOROSIS W/O CURRENT PAT HOLOGICAL FRAC COMPARISON: 2016 EXAM PARAMETERS: Standard craniocaudal and mediolateral oblique views of each breast recorded using digital acquisition. Read with the assistance of CAD. .[facility] - [employer] Operations Manager Version 9.2 LIMITATIONS: None. FINDINGS: Findings present which are benign by mammographic criteria. No suspicious masses, calcifi cations or architectural distortion. Pertinent benign findings: Calcifications in each breast which look benign. Stable appearance. Benign mammographic findings may include one or more of the following: Smooth masses, popcorn/rim/co arse calcifications, asymmetries, post-procedure changes, and lesions with long-standing stability. IMPRESSION: BENIGN MAMMOGRAPHIC FINDINGS. BIRADS 2 BREAST DENSITY: b. There are scattered areas of fibroglandular density. BIRAD: ASSESSMENT: 2 BENIGN FINDING(S) RECOMMENDATION: ROUTINE SCREENING COMMENT: The patient has been notified of the results by letter per MQSA requirements. Additional no tification policies are in place for contacting patient with suspicious or incomplete findings. Quality ID #225: The [employer] recommends an annual screening mammogram for women aged 40 years or over. This facility utilizes a reminder system to ensure that all patients receive reminder letters, and/or direct phone calls for appointments. This includes reminders for routine scr eening mammograms, diagnostic mammograms, or other Breast Imaging Interventions when appropriate. Th is patient will be placed in the appropriate reminder system. TECHNICAL DOCUMENTATION: FINDING NUMBER: (1) ASSESSMENT: (1) JOB ID: [id number] [employer]- All Rights Reserved Reading location - IP/workstation name: [email or web address]
== END ==
LOC: WI 13:05
PROVIDERS: ATTEND Family Medicine
DX: Z12.31 Encounter for screening mammogram for malignant neoplasm of breast (principal); M81.0 Age-related osteoporosis without current pathological fracture
CPT/HCPCS: 77067; 77080

== ENCOUNTER → 2019-04-02 | Outpatient (CLI) | payer MEDICARE, MEDICAID ==
--- NOTE | 2019-04-02 15:29 | RADIOLOGY REPORT (SQ) ---
EXAM DESCRIPTION: CTA ABD AORTA AND EXTREMITY COMPLETED DATE/TIME: 04/02/2019 2:16 pm REASON FOR STUDY: I73.9 PERIPHERAL VASCULAR DISEASE, UNSPECIFIED I73.9 PERIPHERAL VASCULAR DISEASE, UNSPECIFIED COMPARISON: None. TECHNIQUE: CT scan of the body and lower extremities performed with intravenous contrast using helic al scanning technique with dynamic intravenous contrast injection. Images reviewed with soft tissue a nd bone windows. Reconstructed coronal and sagittal MPR images reviewed. All images stored on PACS. Advanced 3D imaging as volume-rendering, MIPs, SSD performed? yes All CT scanners at this facility use dose modulation, iterative reconstruction, and/or weight based d osing when appropriate to reduce radiation dose to as low as reasonably achievable (ALARA). [facility]: Dose Right [facility]: CareDose [facility]: Dose Right [facility]: Teradose 4D [facility]: [employer] CONTRAST TYPE AND DOSE: 50 mL Omnipaque 300- low osmolar. RENAL FUNCTION: Creatinine 1.7 milligrams/deciliter. LIMITATIONS: None. FINDINGS: POST-CONTRAST IMAGING: AORTA AND VESSELS: There dense calcified and noncalcified plaques at the ostia of the renal arteries. There is aneurysmal dilatation of the infrarenal abdominal aorta measuring up to 3.2 x 2.9 cm in diam eter (image 15 of series 2) with eccentric mural thrombus. There is no abdominal aortic dissection. There is atherosclerotic, calcification of the common iliac, external and internal iliac arteries wit hout evidence of dissection or high-grade stenosis. GALLBLADDER: The gallbladder is surgically absent. RIGHT KIDNEY AND URETER: No hydronephrosis or hydroureter. LEFT KIDNEY AND URETER: No hydronephrosis or hydroureter. RETROPERITONEUM: No retroperitoneal adenopathy, hemorrhage or masses. BOWEL AND PERITONEAL CAVITY: No masses or inflammatory changes. No free fluid or peritoneal masses. APPENDIX: Unable to identify the appendix but there is no pericecal inflammation to suggest an acute appendicitis. There is no acute abnormality of the image bowel. ABDOMINAL WALL: There is diastasis of the rectus sheath. BONY STRUCTURES: Osteopenia without a fracture or osseous lesion. 3-D IMAGING: Confirms the above findings. OTHER: The uterus is surgically absent. The urinary bladder is partially distended. LOWER EXTREMITIES: RIGHT LEG: FEMORAL ARTERIES: There is moderate atherosclerotic calcification of the common femoral artery withou t a high-grade stenosis. The SFA is occluded at its origin. The profunda femoris is patent. POPLITEAL ARTERY: The popliteal artery is reconstituted distal to the adductor hiatus, in the poplite al fossa, via collaterals from the profunda femoris. There is dense atherosclerotic calcification of the popliteal artery in the popliteal fossa at with at a minimum a moderate degree of multifocal lum inal stenosis. TIBIOPERONEAL TRUNK AND RUNOFF VESSELS: There is dense atherosclerotic calcification of the tibiopero manjinder trunk. The anterior tibial artery is patent to the ankle. The peroneal artery is diminutive in caliber and contrast is visible within the lumen of the vessel to the level of the mid calf. The po sterior tibial artery is occluded in the proximal calf. OTHER: Unable to evaluate the dorsalis pedis and plantar arteries due to suboptimal propagation of th e contrast bolus into the foot. There is no acute osseous of soft tissue abnormality of the right lo wer extremity. LEFT LEG: FEMORAL ARTERIES: There is mild atherosclerotic calcification of the common femoral artery without a high-grade stenosis. The SFA is occluded. The profunda femoris is patent. POPLITEAL ARTERY: As on the contralateral side, the popliteal artery is reconstituted distal to the a dductor hiatus, in the popliteal fossa, via collaterals from the profunda femoris. TIBIOPERONEAL TRUNK AND RUNOFF VESSELS: The anterior and peroneal arteries are patent to the ankle. The posterior tibial artery is occluded in the proximal calf. OTHER: Unable to evaluate the dorsalis pedis and plantar arteries due to suboptimal propagation of th e contrast bolus into the foot. There is no acute osseous of soft tissue abnormality of the right lo wer extremity. IMPRESSION: 1. Fusiform aneurysmal dilatation of the abdominal aorta with eccentric mural thrombus measuring up to 3.2 x 2.9 cm. 2. 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 On the right there is a 1 ve ssel runoff to the ankle via at the anterior tibial artery. On the left there is a 2 vessel runoff t o the ankle via the anterior tibial and peroneal arteries. TECHNICAL DOCUMENTATION: JOB ID: [id number] Quality ID # [id number]: Final reports with documentation of one or more dose reduction techniques (e.g., Au tomated exposure control, adjustment of the mA and/or kV according to patient size, use of iterative reconstruction technique) 2010 [employer]- All Rights Reserved Reading location - IP/workstation name: [email or web address]
== END ==
LOC: RAD 13:45
PROVIDERS: ATTEND Family Medicine
DX: I73.9 Peripheral vascular disease, unspecified (principal)
CPT/HCPCS: 75635; 82565

== ENCOUNTER → 2019-04-14 | Outpatient (CLI) | payer MEDICARE, MEDICAID | LOC: SP 08:34 | PROVIDERS: ATTEND Surgery | DX: I73.9 Peripheral vascular disease, unspecified (principal) ==

== ENCOUNTER → 2019-11-04 | Outpatient (CLI) | payer MEDICARE, MEDICAID ==
[2019-11-04 13:33] LABS: HEMATOCRIT 42.2 % (36.0-47.0); HEMOGLOBIN 14.2 g/dL (12.0-15.5); MEAN CORPUSCULAR HEMOGLOBIN 32.7 pg (27.0-33.4); MEAN CORPUSCULAR HGB CONC 33.7 g/dL (32.0-36.0); MEAN CORPUSCULAR VOLUME 97 fl (80-97); PLATELET COUNT 206 10^3/uL (150-450); RED BLOOD COUNT 4.36 10^6/uL (3.72-5.28); RED CELL DISTRIBUTION WIDTH 14.2 % (11.5-14.0); WHITE BLOOD COUNT 6.2 10^3/uL (4.0-10.5)
[2019-11-04 14:18] LABS: ALBUMIN 3.9 g/dL (3.5-5.0); ALKALINE PHOSPHATASE 39 U/L (38-126); ANION GAP 11 (5-19); ASPARTATE AMINO TRANSFERASE 35 U/L (14-36); BILIRUBIN,TOTAL 0.8 mg/dL (0.2-1.3); BLOOD UREA NITROGEN 28 mg/dL (7-20); CALCIUM 9.3 mg/dL (8.4-10.2); CARBON DIOXIDE 26 mmol/L (22-30); CHLORIDE 99 mmol/L (98-107); GLUCOSE 136 mg/dL (75-110); POTASSIUM 4.3 mmol/L (3.6-5.0); TOTAL PROTEIN 6.6 g/dL (6.3-8.2)
--- NOTE | 2019-11-04 19:02 | EKG REPORT ---
SEVERITY:- OTHERWISE NORMAL ECG - SINUS RHYTHM LEFT AXIS DEVIATION : Confirmed by: Delbert Machado MD 04-Nov-2019 19:01:37
== END ==
LOC: OD 12:06
PROVIDERS: ATTEND Family Medicine
DX: I73.9 Peripheral vascular disease, unspecified (principal); I95.9 Hypotension, unspecified; R00.1 Bradycardia, unspecified; G62.9 Polyneuropathy, unspecified; R53.1 Weakness; M54.5 Low back pain
CPT/HCPCS: 36415; 80053; 82607; 83735; 84443; 85027; 93005; 93010

== ENCOUNTER → 2020-05-24 | Outpatient (CLI) | payer MEDICARE, MEDICAID ==
[2020-05-25 16:37] LABS: COTININE URINE Negative ng/mL (Cutoff=300)
== END ==
LOC: LAB 12:09
PROVIDERS: ATTEND Orthopaedic Surgery
DX: Z01.812 Encounter for preprocedural laboratory examination (principal); M48.062 Spinal stenosis, lumbar region with neurogenic claudication; F17.200 Nicotine dependence, unspecified, uncomplicated
CPT/HCPCS: 36415; 80307

== ENCOUNTER 2020-05-31 08:46 | Day surgery (SDC) | payer MEDICARE, MEDICAID ==
--- NOTE | 2020-05-26 13:39 | RADIOLOGY REPORT (SQ) ---
EXAM DESCRIPTION: CHEST 2 VIEWS IMAGES COMPLETED DATE/TIME: 05/26/2020 1:27 pm REASON FOR STUDY: PRE OP COMPARISON: 06/21/2008 EXAM PARAMETERS: NUMBER OF VIEWS: two views TECHNIQUE: Digital Frontal and Lateral radiographic views of the chest acquired. RADIATION DOSE: NA LIMITATIONS: none FINDINGS: LUNGS AND PLEURA: No opacities, masses or pneumothorax. No pleural effusion. Increased AP diameter with flattening of the hemidiaphragm suggestive of obstructive lung disease. MEDIASTINUM AND HILAR STRUCTURES: No masses or contour abnormalities. HEART AND VASCULAR STRUCTURES: Heart normal size. No evidence for failure. BONES: No acute findings. HARDWARE: None in the chest. OTHER: No other significant finding. IMPRESSION: NO ACUTE RADIOGRAPHIC FINDING IN THE CHEST. TECHNICAL DOCUMENTATION: JOB ID: [id number] 2010 [employer]- All Rights Reserved Reading location - IP/workstation name: [email or web address]
[2020-05-26 15:37] LABS: HEMATOCRIT 38.8 % (36.0-47.0); MEAN CORPUSCULAR HEMOGLOBIN 31.9 pg (27.0-33.4); MEAN CORPUSCULAR HGB CONC 33.5 g/dL (32.0-36.0); MEAN CORPUSCULAR VOLUME 95 fl (80-97); PLATELET COUNT 165 10^3/uL (150-450); RED BLOOD COUNT 4.08 10^6/uL (3.72-5.28); RED CELL DISTRIBUTION WIDTH 14.8 % (11.5-14.0); WHITE BLOOD COUNT 6.3 10^3/uL (4.0-10.5)
[2020-05-26 15:41] LABS: APPEARANCE,URINE SLIGHTLY-CLOUDY; BILIRUBIN,URINE NEGATIVE (NEGATIVE); COLOR,URINE YELLOW; GLUCOSE, URINE NEGATIVE (NEGATIVE); KETONES,URINE NEGATIVE (NEGATIVE); LEUKOCYTE ESTERASE,URINE LARGE (NEGATIVE); NITRITE,URINE NEGATIVE (NEGATIVE); PROTEIN,URINE NEGATIVE (NEGATIVE); URINE SPECIFIC GRAVITY 1.017; UROBILINOGEN,URINE NEGATIVE mg/dL (<2.0)
[2020-05-26 15:55] LABS: URINE AMPHETAMINES SCREEN NEGATIVE; URINE BARBITURATES SCREEN NEGATIVE; URINE BENZODIAZEPINES SCREEN NEGATIVE; URINE COCAINE SCREEN NEGATIVE; URINE MARIJUANA (THC) SCREEN NEGATIVE; URINE METHADONE SCREEN NEGATIVE; URINE PHENCYCLIDINE SCREEN NEGATIVE
[2020-05-26 16:03] LABS: ANION GAP 9 (5-19); BLOOD UREA NITROGEN 33 mg/dL (7-20); CALCIUM 8.9 mg/dL (8.4-10.2); CARBON DIOXIDE 25 mmol/L (22-30); CHLORIDE 101 mmol/L (98-107); GLUCOSE 85 mg/dL (75-110); POTASSIUM 3.9 mmol/L (3.6-5.0)
[2020-05-26 16:07] LABS: ALCOHOL < 10 mg/dL (NONE DETECTED)
--- NOTE | 2020-05-27 17:25 | EKG REPORT ---
SEVERITY:- OTHERWISE NORMAL ECG - SINUS OR ECTOPIC ATRIAL BRADYCARDIA BORDERLINE LEFT AXIS DEVIATION : Confirmed by: Mary Hunt MD 27-May-2020 17:24:51
[~2020-05-31 08:46] MED LIST: CEFAZOLIN 2 GM/D5W RTU 2 GM/50 ML RTUPB IV PRN; HYDROMORPHONE HCL INJ/PF 2 MG/ML AMPULE ONE; LACTATED RINGERS 1000 ML IV PRN; MIDAZOLAM 2 MG/2 ML INJ ONE; PROPOFOL INJ 200 MG/20 ML VIAL IV ONE
[2020-05-31] MEDS ORDERED: CEFAZOLIN 2 GM/D5W RTU 2 GM/50 ML RTUPB IV ONE (09:53)
[2020-05-31] MEDS ORDERED: BACITRACIN INJ 50,000 UNIT VIAL ONE (10:53)
[2020-05-31] MEDS ORDERED: BUPIVACAINE HCL 0.5 % INJ/PF 30 ML SDV ONE (10:53)
[2020-05-31] MEDS ORDERED: BUPIVACAINE INJ/PF LIPOSOME/PF 266 MG/20 ML SDV ONE (10:53)
[2020-05-31] MEDS ORDERED: FENTANYL CITRATE INJ/PF 100 MCG/2 ML AMPUL ONE (10:58)
[2020-05-31] MEDS ORDERED: DEXAMETHASONE SOD PHOSPHATE INJ 4 MG/1 ML VIAL ONE ×2 (10:58→11:23)
[2020-05-31] MEDS ORDERED: ONDANSETRON HCL INJ/PF 4 MG/2 ML SDV ONE (11:23)
[2020-05-31] MEDS ORDERED: SUCCINYLCHOLINE CHLORIDE INJ 200 MG/10 ML VIAL ONE (11:23)
[2020-05-31] MEDS ORDERED: GLYCOPYRROLATE 1 MG/5 ML VIAL ONE (11:23)
[2020-05-31] MEDS ORDERED: DIPHENHYDRAMINE HCL 50 MG/ML VIAL IV PRN ×2 (12:28→15:14)
[2020-05-31] MEDS ORDERED: MEPERIDINE HCL/PF INJ 25 MG/1 ML DISP.SYRIN IV PRN (12:28)
[2020-05-31] MEDS ORDERED: ONDANSETRON HCL INJ/PF 4 MG/2 ML SDV IV PRN ×2 (12:28→15:09)
[2020-05-31] MEDS ORDERED: MORPHINE SULFATE 10 MG/ML INJ IV PRN (12:28)
[2020-05-31] MEDS ORDERED: FENTANYL CITRATE INJ/PF 100 MCG/2 ML AMPUL IV PRN ×3 (12:28)
[2020-05-31] MEDS ORDERED: VANCOMYCIN HCL INJ 1000 MG VIAL ONE (13:02)
[2020-05-31] MEDS ORDERED: EPHEDRINE SULFATE INJ 50 MG/1 ML AMPULE ONE (13:40)
[2020-05-31] MEDS ORDERED: METHOCARBAMOL INJ/PF 1000 MG/10 ML SDV ONE (13:43)
--- NOTE | 2020-05-31 13:49 | RADIOLOGY REPORT (SQ) ---
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 FLUOROSCOPY TIME: Less than 1 second. Spot images saved to PACS. TECHNIQUE: Intra-operative images acquired during surgical procedure to evaluate progress. NUMBER OF IMAGES: 2 LIMITATIONS: None. FINDINGS: Fluoroscopy was provided for intraoperative procedure. Please refer to the operative repo rt for further discussion. IMPRESSION: IMAGE(S) OBTAINED DURING PROCEDURE. COMMENT: Quality ID [id number]: Final reports for procedures using fluoroscopy that document radiation exp osure indices, or exposure time and number of fluorographic images (if radiation exposure indices are not available) Please consult full operative report of the attending physician for description of the procedure. TECHNICAL DOCUMENTATION: JOB ID: [id number] 2010 [employer]- All Rights Reserved Reading location - IP/workstation name: [email or web address]
--- NOTE | 2020-05-31 13:49 | RADIOLOGY REPORT (SQ) ---
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 IMPRESSION: Please see combined report for performance of procedure and radiologic supervision and i nterpretation. Reading location - IP/workstation name: [email or web address]
[2020-05-31] MEDS ORDERED: ACETAMINOPHEN 1,000 MG/100 ML RTUPB IV ONE (14:29)
--- NOTE | 2020-05-31 14:55 | Operative Report ---
Operative Report DATE OF SURGERY: 05/31/20 PREOPERATIVE DIAGNOSIS: L4-5 severe stenosis degenerative disc disease and back pain and radiculitis with neurogenic claudication POSTOPERATIVE DIAGNOSIS: L4-5 severe stenosis degenerative disc disease and back pain and radiculitis with neurogenic claudication. Status post L4-5 central decompression and right-sided microdiscectomy OPERATION: L4-5 central decompression and right-sided microdiscectomy SURGEON: LA NENA MONROY LOCKSTITCH MACHINE OPERATOR: HOLLY KRISHNAN ANESTHESIA: GA COMPLICATIONS: None PROCEDURE: Patient is brought into the room and placed under general anesthesia. After appropriate surgical timeout the patient was placed in the prone position on the radiolucent table with Ravinder frame attachment. Patient received 2 g of Ancef within 1 hour of cut time. Under C arm fluoroscopy in the lateral position the skin is marked using a metal marker. After marking the midline and after completion of prepping and draping midline incision is carried out using sharp dissection. Electrocautery was used to maintain hemostasis. Dissection is carried out onto the lamina of L4-5 and Chilton was placed at the posterior interspace of L4-5 upon verification of the posterior interspace position using lateral C-arm fluoroscopy the spinous process of L4 resected. The microscope was brought in and under the microscope and through the assistance of arthur Eagle physician librarian assistant to the microscope partial laminectomies performed using the bur and Kerrisons and ligamentum flavum was resected. The dura is retracted medially and the right lateral recesses decompressed and a partial facetectomies performed. The noted disc protrusion is then resected under the microscope many small and large d egenerative pieces of disc were resected. Then the dura is found to rest more ventrally and no pressure is noted on the exiting nerve root. A Valsalva maneuver was performed by the anesthesia team. Noting no cerebrospinal fluid leakage or epidural bleeders. The wound is irrigated with a liter of bacitracin irrigation and the fascia is then reapproximated with 0 Vicryl the subcu with 2- 0 Vicryl. The deep and superficial soft tissues were infiltrated with 1.3% Exparel 20 cc mixed with 20 cc of Marcaine plain. The subcu was reapproximated with 3-0 Monocryl as a running stitch with the edges tied outside of the skin and the wound is dressed with benzoin Steri-Strips 4 x 4 and tape. Patient was then brought to the supine position extubated brought to recovery room. Patient tolerated post procedure well. Please note this procedure could not have been done without the assistance of arthur Eagle physician librarian assistant working under the microscope carry out the discectomy and retracting the dura.
[2020-05-31] MEDS ORDERED: ACETAMINOPHEN 325 MG TABLET PO PRN (15:08)
[2020-05-31] MEDS ORDERED: HYDROCODONE/ACETAMINOPHEN 5-325 MG TABLET PO PRN (15:08)
[2020-05-31] MEDS ORDERED: OXYCODONE-ACETAMINOPHEN 5-325 MG TABLET PO PRN (15:09)
[2020-05-31] MEDS ORDERED: PROMETHAZINE HCL 25 MG TABLET PO PRN (15:10)
[2020-05-31] MEDS ORDERED: PROMETHAZINE HCL INJ 25 MG/1 ML VIAL IM PRN (15:10)
[2020-05-31] MEDS ORDERED: DIAZEPAM 5 MG TABLET PO PRN (15:11)
--- NOTE | 2020-05-31 15:11 | PDOC DISCHARGE SUMMARY ---
General - Admit/Disc Date/PCP Admission Date/Primary Care Provider: HOLLY COFFEY DO Discharge Date: 05/31/20 - Discharge Diagnosis Final Diagnosis: That is post L4-5 decompression and right-sided microdiscectomy - Additional Information Resuscitation Status: Full Code Discharge Diet: As Tolerated Discharge Activity: Balance Activity w/Rest Referrals: LA NENA BEEBE MD [ASSOCIATE] - Home Medications: Amlodipine Besylate [Norvasc 5 mg Tablet] 5 mg PO DAILY 05/31/17 Diclofenac Sodium [Voltaren] 75 mg PO BID 05/31/17 Donepezil HCl [Aricept] 10 mg PO QHS 05/31/17 Loratadine [Claritin 10 mg Tablet] 10 mg PO DAILY PRN 05/31/17 Oxycodone HCl/Acetaminophen [Percocet 5-325 mg Tablet] 1 tab PO Q6HP PRN 05/31/17 Valsartan/Hydrochlorothiazide [Valsartan-Hctz 320-12.5 mg Tab] 1 tab PO DAILY 05/31/17 Citalopram Hydrobromide [Citalopram HBr] 10 mg PO DAILY 05/26/20 Memantine HCl 10 mg PO DAILY 05/26/20 Pregabalin [Lyrica 100 Mg Capsule] 100 mg PO BID 05/26/20 Additional Information: Patient is doing overall well has some back pain will be discharged home to follow-up in the office in 10 to 14 days History of Present Illiness History of Present Illness: DANIELLE NORTON is a 74 year old female Physical Exam Vital Signs: Temp Pulse Resp BP Pulse Ox 97.9 F 60 14 132/62 H 98 05/31/20 14:33 05/31/20 14:33 05/31/20 14:33 05/31/20 14:33 05/31/20 14:33 Intake & Output 05/30/20 05/31/20 06/01/20 06:59 06:59 06:59 Intake Total 1450 Output Total 125 Balance 1325 Results Laboratory Results: WBC 6.3 10^3/uL (4.0-10.5) 05/26/20 12:19 RBC 4.08 10^6/uL (3.72-5.28) 05/26/20 12:19 Hgb 13.0 g/dL (12.0-15.5) 05/26/20 12:19 Hct 38.8 % (36.0-47.0) 05/26/20 12:19 MCV 95 fl (80-97) 05/26/20 12:19 MCH 31.9 pg (27.0-33.4) 05/26/20 12:19 MCHC 33.5 g/dL (32.0-36.0) 05/26/20 12:19 RDW 14.8 % (11.5-14.0) H 05/26/20 12:19 Plt Count 165 10^3/uL (150-450) 05/26/20 12:19 Sodium 135.1 mmol/L (137-145) L 05/26/20 12:19 Potassium 3.6 mmol/L (3.6-5.0) 05/31/20 09:29 Chloride 101 mmol/L (98-107) 05/26/20 12:19 Carbon Dioxide 25 mmol/L (22-30) 05/26/20 12:19 Anion Gap 9 (5-19) 05/26/20 12:19 BUN 33 mg/dL (7-20) H 05/26/20 12:19 Creatinine 1.42 mg/dL (0.52-1.25) H 05/26/20 12:19 Est GFR ( Amer) 44 (>60) L 05/26/20 12:19 Est GFR (MDRD) Non-Af 36 (>60) L 05/26/20 12:19 Glucose 85 mg/dL (75-110) 05/26/20 12:19 Calcium 8.9 mg/dL (8.4-10.2) 05/26/20 12:19 Urine Color YELLOW 05/26/20 12:15 Urine Appearance SLIGHTLY-CLOUDY 05/26/20 12:15 Urine pH 5.0 (5.0-9.0) 05/26/20 12:15 Ur Specific Armstrong 1.017 05/26/20 12:15 Urine Protein NEGATIVE mg/dL (NEGATIVE) 05/26/20 12:15 Urine Glucose (UA) NEGATIVE mg/dL (NEGATIVE) 05/26/20 12:15 Urine Ketones NEGATIVE mg/dL (NEGATIVE) 05/26/20 12:15 Urine Blood NEGATIVE (NEGATIVE) 05/26/20 12:15 Urine Nitrite NEGATIVE (NEGATIVE) 05/26/20 12:15 Urine Bilirubin NEGATIVE (NEGATIVE) 05/26/20 12:15 Urine Urobilinogen NEGATIVE mg/dL (<2.0) 05/26/20 12:15 Ur Leukocyte Esterase LARGE (NEGATIVE) H 05/26/20 12:15 Urine WBC (Auto) 5 /HPF 05/26/20 12:15 Urine RBC (Auto) 2 /HPF 05/26/20 12:15 Urine Bacteria (Auto) TRACE /HPF 05/26/20 12:15 Squamous Epi Cells Auto 6 /HPF 05/26/20 12:15 Urine Mucus (Auto) RARE /LPF 05/26/20 12:15 Urine Ascorbic Acid NEGATIVE (NEGATIVE) 05/26/20 12:15 Urine Opiates Screen NEGATIVE 05/26/20 12:15 Urine Methadone Screen NEGATIVE 05/26/20 12:15 Ur Barbiturates Screen NEGATIVE 05/26/20 12:15 Ur Phencyclidine Scrn NEGATIVE 05/26/20 12:15 Ur Amphetamines Screen NEGATIVE 05/26/20 12:15 U Benzodiazepines Scrn NEGATIVE 05/26/20 12:15 Urine Cocaine Screen NEGATIVE 05/26/20 12:15 U Marijuana (THC) Screen NEGATIVE 05/26/20 12:15 Serum Alcohol < 10 mg/dL (NONE DETECTED) 05/26/20 12:19 COVID-19 Source See comment 05/26/20 12:22 COVID-19 (JAIME) Not Detected (Not Detect) 05/26/20 12:22 Impressions: Chest X-Ray 05/26/20 13:12 IMPRESSION: NO ACUTE RADIOGRAPHIC FINDING IN THE CHEST. Fluoroscopy 05/31/20 00:00 IMPRESSION: Please see combined report for performance of procedure and radiologic supervision and interpretation. Spine X-Ray 05/31/20 00:00 IMPRESSION: IMAGE(S) OBTAINED DURING PROCEDURE.
[2020-05-31] MEDS ORDERED: METHOCARBAMOL 500 MG TABLET PO PRN (15:12)
[2020-05-31] MEDS ORDERED: DIPHENHYDRAMINE HCL 25 MG CAPSULE PO PRN (15:13)
[2020-05-31 20:57] VITALS: BP 162/55
== END 2020-05-31 18:30 | disposition home or self-care (01) ==
LOC: OROUT 08:46
PROVIDERS: ATTEND Orthopaedic Surgery
DX: M48.062 Spinal stenosis, lumbar region with neurogenic claudication (principal); M51.16 Intervertebral disc disorders with radiculopathy, lumbar region; E78.5 Hyperlipidemia, unspecified; I10 Essential (primary) hypertension; F03.90 Unspecified dementia, unspecified severity, without behavioral disturbance, psychotic disturbance, mood disturbance, and anxiety; Z79.899 Other long term (current) drug therapy; Z20.828 Contact with and (suspected) exposure to other viral communicable diseases; Z79.82 Long term (current) use of aspirin; Z87.891 Personal history of nicotine dependence
CPT/HCPCS: 93005; 36415; 80307 ×2; 84132; 85027; 80048; 81001; 87070; 71046; 72020; 93010; 63047; U0003; J2250; J3490 ×4; J1100; J2800; J1170; J0330; J2405; J2704; J3370; J0690; J0131; C9290; C9803; 87635; J3010